=== PATIENT | female | born 1960 | race Caucasian/White ===

== ENCOUNTER 2018-12-27 13:57 | Emergency (ER) | payer BC ==
[2018-12-27] MEDS ORDERED: TETANUS & DIPHTHERIA TOX,ADULT 0.5 ML VIAL ONE (14:51)
[2018-12-27] MEDS ORDERED: HYDROCODONE/APAP 7.5/325 MG TAB ONE (14:51)
[2018-12-27] MEDS ORDERED: IBUPROFEN 400 MG TAB ONE (14:51)
--- NOTE | 2018-12-27 15:11 | RAD REPORT ---
EXAM DESCRIPTION: RAD - Ankle Left 3 View - 12/27/2018 3:01 pm CLINICAL HISTORY: PAIN COMPARISON: Foot Left 3 View dated 12/27/2018 FINDINGS: Left ankle and left foot- multiple projections are submitted No acute fracture or dislocation seen. The bones are osteopenic. Small posterior calcaneal spur evide nt.
--- NOTE | 2018-12-27 15:44 | EDPHYS ---
Physician Documentation [facility] Name: Shaneka Cadena Age: 58 yrs Sex: Female : 1960 Arrival Date: 12/27/2018 Time: 14:00 Bed 17 Private MD: ED Physician Junior Koroma HPI: 12/27 14:35 This 58 yrs old Female presents to ER via Wheelchair with complaints of cp Puncture Wound To Foot. 14:35 The patient presents with a puncture wound, metal. The complaints affect the arch of cp left foot. Context: The problem was sustained at a friend's home, outdoors, the patient can partially bear weight, while wearing shoe. Onset: The symptoms/episode began/occurred yesterday. Associated signs and symptoms: Pertinent positives: swelling, warmth, drainage, Pertinent negatives: fever. Severity of symptoms: in the emergency department the symptoms are unchanged, despite home interventions. Historical: - Allergies: 14:09 PENICILLINS; aj1 - Home Meds: 14:09 atorvastatin oral oral [Active]; losartan oral oral [Active]; aj1 - PMHx: 14:09 Hypertension; Hyperlipidemia; Anxiety; aj1 - PSHx: 14:09 replaced 2 disks in neck; shoulder surgery; aj1 - Immunization history:: Flu vaccine is not up to date. - Social history:: Smoking status: Patient uses tobacco products, smokes one pack cigarettes per day. - Ebola Screening: : Patient denies travel to an Ebola-affected area in the 21 days before illness onset. ROS: 14:40 Constitutional: Negative for body aches, chills, fever. cp 14:40 Cardiovascular: Negative for chest pain. cp 14:40 Respiratory: Negative for cough, shortness of breath, wheezing. 14:40 Abdomen/GI: Negative for abdominal pain, nausea, vomiting, and diarrhea. 14:40 MS/extremity: Positive for pain, puncture, swelling, tenderness, warmth, of the arch of left foot, Negative for paresthesias. 14:40 Neuro: Negative for altered mental status, headache, weakness. 14:40 All other systems are negative. Exam: 14:48 Constitutional: The patient appears in no acute distress, alert, awake, non-toxic, well cp developed, well nourished, uncomfortable. 14:48 Head/Face: Normocephalic, atraumatic. cp 14:48 Chest/axilla: Inspection: normal. 14:48 Cardiovascular: Rate: normal, Rhythm: regular. 14:48 Respiratory: the patient does not display signs of respiratory distress, Respirations: normal, no use of accessory muscles, labored breathing, is not present. 14:48 Skin: injury, that can be described as without bleeding, mild purulent drainage from wound, noted swelling and erythema, marked tenderness, puncture(s), that are deep, of the arch of left foot. 14:48 Neuro: Sensation: no obvious gross deficits. Vital Signs: 14:09 BP 156 / 84; Pulse 81; Resp 18; Temp 98.4; Pulse Ox 100% on R/A; Weight 64.41 kg (R); aj1 Height 5 ft. 5 in. (165.10 cm) (R); 14:09 Body Mass Index 23.63 (64.41 kg, 165.10 cm) aj1 MDM: 14:23 Patient medically screened. cp 15:44 Data reviewed: vital signs, nurses notes, radiologic studies, plain films. cp 15:44 Differential diagnosis: fracture, foreign body, penetrating trauma, cellulitis. Test cp interpretation: by ED physician or midlevel provider: plain radiologic studies. Counseling: I had a detailed discussion with the patient and/or guardian regarding: the historical points, exam findings, and any diagnostic results supporting the discharge/admit diagnosis, radiology results, the need for outpatient follow up, to return to the emergency department if symptoms worsen or persist or if there are any questions or concerns that arise at home. Response to treatment: the patient's symptoms have mildly improved after treatment, and as a result, I will discharge patient. 12/27 14:30 Order name: Wound Culture cp 12/27 14:30 Order name: XRAY Ankle LEFT 3 view cp 12/27 14:30 Order name: XRAY Foot LEFT 3 View cp 12/27 15:15 Order name: Wound Care: please flush and irrigate wound, dress with triple antibiotic; cp Complete Time: 16:20 Administered Medications: 14:38 Drug: Hydrocodone-Acetaminophen (7.5 mg-325 mg) 1 tabs Route: PO; em 15:49 Follow up: Response: No adverse reaction; Pain is decreased em 14:38 Drug: Ibuprofen 800 mg Route: PO; em 15:48 Follow up: Response: No adverse reaction; Pain is decreased em 14:40 Drug: Tetanus-Diphtheria Toxoid Adult 0.5 ml {Breast Puller: [employer]. Exp: em 09/19/2020. Lot #: [id number]. } Route: IM; Site: right deltoid; 15:48 Follow up: Response: No adverse reaction em 16:09 Drug: LevaQUIN 750 mg Route: PO; em 16:21 Follow up: Response: Medication administered at discharge. em 16:09 Drug: Bactrim (160 mg-800 mg (DS) 1 tablet Route: PO; em 16:20 Follow up: Response: Medication administered at discharge. em Disposition: 16:30 Chart complete. cp Disposition: 12/27/18 15:44 Discharged to Home. Impression: Puncture wound without foreign body of foot - left, Cellulitis of left lower limb - foot. - Condition is Stable. - Discharge Instructions: Cellulitis, Adult, Puncture Wound. - Prescriptions for Ibuprofen 800 mg Oral Tablet - take 1 tablet by ORAL route every 8 hours As needed take with food; 30 tablet. Levaquin 750 mg Oral Tablet - take 1 tablet by ORAL route once daily for 10 days start afternoon of 12-28-2018; 9 tablet. Tylenol- Codeine #3 300-30 mg Oral Tablet - take 2 tablets by ORAL route every 8 hours As needed; 15 tablet. Bactrim DS 800- 160 mg Oral Tablet - take 1 tablet by ORAL route every 12 hours for 10 days; 20 tablet. - Medication Reconciliation Form, Thank You Letter, Antibiotic Education, Prescription Opioid Use form. - Follow up: Private Physician; When: 48 Hours; Reason: Wound Recheck. - Problem is new. - Symptoms have improved. Signatures: Dispatcher [employer] Lynda Zaragoza RN RN aj1 Joe Morales, SECURITIES VAULT SUPERVISOR SECURITIES VAULT SUPERVISOR em Jama Odom PA PA cp Corrections: (The following items were deleted from the chart) 16:23 15:44 12/27/2018 15:44 Discharged to Home. Impression: Puncture wound without foreign em body of foot - left; Cellulitis of left lower limb - foot. Condition is Stable. Forms are Medication Reconciliation Form, Thank You Letter, Antibiotic Education, Prescription Opioid Use. Follow up: Private Physician; When: 48 Hours; Reason: Wound Recheck. Problem is new. Symptoms have improved. cp
--- NOTE | 2018-12-27 15:44 | ER ---
Nurse's Notes [facility] Name: Shaneka Cadena Age: 58 yrs Sex: Female : 1960 Arrival Date: 12/27/2018 Time: 14:00 Bed 17 Private MD: Diagnosis: Puncture wound without foreign body of foot-left;Cellulitis of left lower limb-foot Presentation: 12/27 14:06 Presenting complaint: Patient states: "yesterday evening I stepped on some marley rebar aj1 that went through my shoe and through my foot, then I fell and twisted my ankle" Patient reports pain to left ankle and puncture wound to left foot. Transition of care: patient was not received from another setting of care. Onset of symptoms was December 26, 2018. Risk Assessment: Do you want to hurt yourself or someone else? Patient reports no desire to harm self or others. Initial Sepsis Screen: Does the patient meet any 2 criteria? No. Patient's initial sepsis screen is negative. Does the patient have a suspected source of infection? No. Patient's initial sepsis screen is negative. Care prior to arrival: None. 14:06 Method Of Arrival: Wheelchair aj1 14:06 Acuity: MALINA 4 aj1 Triage Assessment: 14:09 General: Appears in no apparent distress. uncomfortable, Behavior is calm, cooperative, aj1 appropriate for age. Pain: Complains of pain in left foot Pain currently is 7 out of 10 on a pain scale. Neuro: Level of Consciousness is awake, alert, obeys commands. Cardiovascular: Patient's skin is warm and dry. Respiratory: Airway is patent Respiratory effort is even, unlabored, Respiratory pattern is regular, symmetrical. Historical: - Allergies: 14:09 PENICILLINS; aj1 - Home Meds: 14:09 atorvastatin oral oral [Active]; losartan oral oral [Active]; aj1 - PMHx: 14:09 Hypertension; Hyperlipidemia; Anxiety; aj1 - PSHx: 14:09 replaced 2 disks in neck; shoulder surgery; aj1 - Immunization history:: Flu vaccine is not up to date. - Social history:: Smoking status: Patient uses tobacco products, smokes one pack cigarettes per day. - Ebola Screening: : Patient denies travel to an Ebola-affected area in the 21 days before illness onset. Screenin:30 Abuse screen: Denies threats or abuse. Nutritional screening: No deficits noted. em Tuberculosis screening: No symptoms or risk factors identified. Fall Risk None identified. Assessment: 14:30 General: Appears in no apparent distress. uncomfortable, Behavior is calm, cooperative, em Denies fever. Pain: Complains of pain in left foot Pain currently is 10 out of 10 on a pain scale. Neuro: Level of Consciousness is awake, alert, obeys commands, Oriented to person, place, time, situation. Cardiovascular: Capillary refill < 3 seconds Patient's skin is warm and dry. Respiratory: Airway is patent Respiratory effort is even, unlabored, Respiratory pattern is regular, symmetrical. Derm: Skin is intact, is healthy with good turgor, Skin is pink, warm \\T\\ dry. Wound noted arch of left foot. Musculoskeletal: Capillary refill < 3 seconds, Range of motion: intact in all extremities. Vital Signs: 14:09 BP 156 / 84; Pulse 81; Resp 18; Temp 98.4; Pulse Ox 100% on R/A; Weight 64.41 kg (R); aj1 Height 5 ft. 5 in. (165.10 cm) (R); 14:09 Body Mass Index 23.63 (64.41 kg, 165.10 cm) aj1 ED Course: 14:00 Patient arrived in ED. as 14:07 Triage completed. aj1 14:09 Arm band placed on Patient placed in an exam room. aj1 14:10 Jama Odom PA is PHCP. cp 14:10 Junior Koroma MD is Attending Physician. cp 14:18 Joe Morales LVN is Primary Nurse. em 14:30 Patient has correct armband on for positive identification. Bed in low position. Call em light in reach. Pulse ox on. NIBP on. 15:02 XRAY Ankle LEFT 3 view In Process Unspecified. EDMS 15:02 XRAY Foot LEFT 3 View In Process Unspecified. EDMS 16:22 No provider procedures requiring assistance completed. Patient did not have IV access em during this emergency room visit. Administered Medications: 14:38 Drug: Hydrocodone-Acetaminophen (7.5 mg-325 mg) 1 tabs Route: PO; em 15:49 Follow up: Response: No adverse reaction; Pain is decreased em 14:38 Drug: Ibuprofen 800 mg Route: PO; em 15:48 Follow up: Response: No adverse reaction; Pain is decreased em 14:40 Drug: Tetanus-Diphtheria Toxoid Adult 0.5 ml {High Speed Printer Operator: Isabella Oliver. Exp: em 09/19/2020. Lot #: [id number]. } Route: IM; Site: right deltoid; 15:48 Follow up: Response: No adverse reaction em 16:09 Drug: LevaQUIN 750 mg Route: PO; em 16:21 Follow up: Response: Medication administered at discharge. em 16:09 Drug: Bactrim (160 mg-800 mg (DS) 1 tablet Route: PO; em 16:20 Follow up: Response: Medication administered at discharge. em Outcome: 15:44 Discharge ordered by MD. cp 16:22 Discharged to home with crutches. em 16:22 Condition: stable 16:22 Discharge instructions given to patient, Instructed on discharge instructions, follow up and referral plans. medication usage, crutch walking, wound care, Demonstrated understanding of instructions, follow-up care, medications, Prescriptions given X 4. 16:23 Patient left the ED. em Signatures: Dispatcher [employer] Lynda Zaragoza RN RN aj1 Joe Morales, ROPE TIER ROPE TIER Sheryl Alejandro Corey, PA PA cp
[2018-12-27] MEDS ORDERED: levoFLOXacin 750 MG TAB ONE (16:20)
[2018-12-27] MEDS ORDERED: SMZ./TMP. 800/160 MG TABLET ONE (16:21)
--- NOTE | 2018-12-28 11:05 | RAD REPORT ---
EXAM DESCRIPTION: RAD - Foot Left 3 View - 12/27/2018 3:02 pm CLINICAL HISTORY: PAIN COMPARISON: Foot Left 3 View dated 12/27/2018 FINDINGS: Left ankle and left foot- multiple projections are submitted No acute fracture or dislocation seen. The bones are osteopenic. Small posterior calcaneal spur evide nt.
== END 2018-12-27 16:23 | disposition home or self-care (01) ==
LOC: ER 13:57
DX: S91.332A Puncture wound without foreign body, left foot, initial encounter (principal); L03.116 Cellulitis of left lower limb; W26.9XXA Contact with unspecified sharp object(s), initial encounter; Y92.009 Unspecified place in unspecified non-institutional (private) residence as the place of occurrence of the external cause; I10 Essential (primary) hypertension; E78.5 Hyperlipidemia, unspecified; F41.9 Anxiety disorder, unspecified; Z23 Encounter for immunization; Z88.0 Allergy status to penicillin
CPT/HCPCS: 87070; 87205; 90471; 90714; 99284